=== PATIENT | male | born 1990 | race Caucasian/White ===

== ENCOUNTER → 2019-03-14 | Outpatient (CLI) | payer BC, SELFPAY ==
--- NOTE | 2019-03-14 15:53 | RAD_ITS ---
STUDY: X-RAY CHEST REASON FOR EXAM: Male, 28 years old. Chest pain. TECHNIQUE: Frontal and lateral views of the chest. COMPARISON: None. FINDINGS: The lungs are clear and expanded. There is no demonstrated pleural abnormality. Normal size heart. Normal mediastinum and doc. Normal visualized pulmonary arteries. Normal visualized aortic arch and descending thoracic aorta. Normal visualized thoracic spine. Normal visualized ribs, clavicles, and shoulders. There is no demonstrated abnormality of the visualized soft tissue structures of the upper abdomen. RAD/Chest PA and Lateral IMPRESSION: Normal x-ray examination of the chest. Electronically Signed: Serafin Greenfield MD at 18:58 EDT , Service support ,
[2019-03-14 17:58] LABS: Hematocrit 48.9 % (40-54); Hemoglobin 16.1 g/dL (13.0-16.5); Mean Corp Hgb Conc 32.9 g/dL (32-36); Mean Corpuscular Hgb 29.1 pg (27.0-32.0); Mean Corpuscular Volume 88.4 fL (80-94); Mean Platelet Vol. 9.5 fl (6.2-12.0); Platelet Count 331 K/mm3 (150-450); RBC Distribution Width CV 12.5 % (11.6-14.6); RBC Distribution Width SD 40.9 fl (35.1-43.9); Red Blood Count 5.53 M/mm3 (4.6-6.2); White Blood Count 11.6 K/mm3 (4.4-11.0)
[2019-03-14 18:04] LABS: Anion Gap 9 (5-15); BUN 14 mg/dL (7-18); BUN/Creat Ratio 13.3 RATIO (10-20); Calcium,Total 9.1 mg/dL (8.5-10.1); Chloride 102 mmol/L (98-107); Creatinine, Serum 1.05 mg/dL (0.70-1.30); EST Glomerular Filtration Rate 89 mL/min (>60); Est Glom Filt Rate - Afr Amer 107 mL/min (>60); Glucose 215 mg/dL (74-106); Sodium Level 134 mmol/L (136-145)
[2019-03-14 18:11] LABS: D-Dimer Quantitative (DVT/PE) < 0.27 FEU/ug/m (0.27-0.49)
== END | disposition home or self-care (01) ==
PROVIDERS: Family Provider Family Medicine; PCP Family Medicine; Referring Provider Nurse Practitioner Family; Visit Provider Nurse Practitioner Family
DX: R50.9 Fever, unspecified (principal); M79.603 Pain in arm, unspecified
CPT/HCPCS: 36415; 71046; 80048; 85027; 85379

== ENCOUNTER → 2020-05-22 | Outpatient (CLI) | payer BC, SELFPAY | END | disposition home or self-care (01) | PROVIDERS: PCP Family Medicine; Referring Provider Family Medicine; Visit Provider Family Medicine | DX: Z20.828 Contact with and (suspected) exposure to other viral communicable diseases (principal) | CPT/HCPCS: 87635; U0003 ==

== ENCOUNTER 2020-08-01 16:08 | Inpatient (IN) | payer BC, SELFPAY ==
[2020-08-01 16:11] VITALS: BP 144/78; PULSE 125; RESP 20; TEMP 36.3; O2SAT 97; BMI 40.8
[2020-08-01 17:05] VITALS: BP 139/71; PULSE 111; RESP 27; TEMP 37.1; O2SAT 96
--- NOTE | 2020-08-01 17:14 | CT_ITS ---
STUDY: CT PELVIS WITH CONTRAST REASON FOR EXAM: Male, 29 years old. SCROTAL ABSCESS. Vasectomy 2 weeks ago RADIATION DOSAGE (If Supplied By Facility): CTDIvol = ( 16.94 ) mGy, DLP = ( 1050.32 ) mGycm TECHNIQUE: Transaxial imaging of the pelvis was performed without oral contrast. IV 100mL Isovue-300 was administered intravenously. Individualized dose optimization techniques were used for this CT. COMPARISON: None. FINDINGS: Normal urinary bladder. Normal visualized small intestine. Normal visualized colon. There is no pelvic fluid. There is no pelvic lymphadenopathy or mass lesion. Prominent bilateral nonspecific borderline inguinal lymphadenopathy measuring up to 14 x 18 mm on the right. Normal visualized pelvic arteries. 2.6 x 2.1 cm fluid collection right hemiscrotum. Normal abdominal wall. Normal osseous structures. CT/Pelvis WITH IV Contrast IMPRESSION: Fluid collection right hemiscrotum. Recommend scrotal ultrasound. Prominent inguinal lymphadenopathy. Abscess not excluded. Electronically Signed: Chuck Ozuna MD at 18:49 EST , Service support ,
[2020-08-01] MEDS: Ondansetron 4 MG/2 ML Vial IV (17:21)
[2020-08-01] MEDS: 0.9% Normal Saline 1,000 ML 1000 ML IV (17:21)
[2020-08-01] MEDS: Morphine 4 MG/ML Syringe IV (17:24)
[2020-08-01 17:28] VITALS: PULSE 110; RESP 20; O2SAT 95
[2020-08-01 17:37] LABS: Absolute Lymphocyte Count 1.88 X10^3/uL (0.83-4.51); Absolute Neutrophil Count 13.1 X10^3/uL (2.0-7.7); Basophil# 0.05 X10^3/uL; Basophil% 0.3 % (0-1); Eosinophil# 0.36 X10^3/uL; Eosinophils% 2.2 % (0-5); Hematocrit 42.1 % (40-54); Hemoglobin 14.3 g/dL (13.0-16.5); Lymphocyte # 1.88 X10^3/ul (4.0); Lymphocyte % 11.6 % (19-41); Mean Corpuscular Hgb 28.9 pg (27.0-32.0); Mean Corpuscular Volume 85.1 fL (80-94); Mean Platelet Vol. 8.9 fl (6.2-12.0); Monocyte# 0.73 X10^3/uL; Monocyte% 4.5 % (0-10); NRBC Flagged by Analyzer 0 % (0-5); Neutrophil # 13.06 X10^3/uL (2.7-7.7); Neutrophil % 80.5 % (47-70); Platelet Count 558 K/mm3 (150-450); RBC Distribution Width CV 12.5 % (11.6-14.6); RBC Distribution Width SD 38.4 fl (35.1-43.9); Red Blood Count 4.95 M/mm3 (4.6-6.2); White Blood Count 16.2 K/mm3 (4.4-11.0)
[2020-08-01 17:47] LABS: International Normalized Ratio 1.1; Partial Thromboplast Time 30.8 Seconds (24.1-36.2); Prothrombin Time (Protime)PT. 13.3 SECONDS (11.7-14.9)
[2020-08-01 18:00] VITALS: BP 134/72; PULSE 106; RESP 26; TEMP 36.9; O2SAT 94
[2020-08-01 18:01] LABS: ALB/GLOB Ratio 0.8 RATIO (0.9-2.4); AST(SGOT) 14 U/L (15-37); Alanine Aminotransfer ALT/SGPT 35 U/L (16-61); Albumin, Serum 3.5 g/dL (3.2-5.0); Alkaline Phosphatase 119 U/L (45-117); Anion Gap 8 (5-15); BUN 17 mg/dL (7-18); Calcium,Total 8.7 mg/dL (8.5-10.1); Chloride 108 mmol/L (98-107); Creatinine, Serum 0.85 mg/dL (0.70-1.30); EST Glomerular Filtration Rate 112 mL/min (>60); Est Glom Filt Rate - Afr Amer 135 mL/min (>60); Estimated Creatinine Clearance 131.21 ml/min; Globulin 4.4 g/dL (2.2-4.2); Glucose 194 mg/dL (74-106); Potassium 3.8 mmol/L (3.5-5.1); Protein, Total 7.9 g/dL (6.4-8.2); Sodium Level 141 mmol/L (136-145)
[2020-08-01 18:21] LABS: Lactic Acid 1.4 mmol/L (0.4-1.9)
[2020-08-01] MEDS: Lidocaine 1% /Epi 1:100 (20ml) 20 ML Vial INFILT (18:22)
--- NOTE | 2020-08-01 18:42 | PCM.HP.STD ---
History of Present Illness Date of Admission: 08/01/20 Chief Complaint: Scrotal abscess The patient is a 29 year old male who had a vasectomy about 2 weeks ago last week and some in the office he is sudden onset of swelling on both sides we put him on Cipro he then called me again says is getting worse on the 1 side better on the other worse on his right side C told him to go the emergency room here we got a CAT scan demonstrates a phlegmon and abscess formation on the right side no clear abscess on the left side so at the bedside I numbed to the scrotal skin and incised the abscess and drained pus. I then washed out the scrotal abscess and put Nu Gauze dressing in place. Past Medical History Allergies No Known Allergies Allergy (Verified 08/01/20 16:09) Home Medications: Ambulatory Orders Medication Instructions Recorded Escitalopram Oxalate 20 mg PO DAILY 08/01/20 Glimepiride 1 mg PO DAILY 08/01/20 Metformin HCl 1,000 mg PO BID 08/01/20 Surgical History: no surgical history Smoking Status: Never smoker Review of Systems Constitutional: Denies: Chills, Fever, Weight Change HEENT: Denies: Head Aches, Sinus Congestion, Sinus Drainage Cardiovascular: Denies: Chest Pain, Palpitations Respiratory: Denies: Cough, Shortness of breath at rest, Sputum production Gastrointestinal: Denies: Abdominal Pain, Nausea, Vomiting Genitourinary: Denies: Dysuria Musculoskeletal: Denies: Joint Pain, Joint Tenderness Skin: Denies: Rash, Wounds Neurological: Denies: Numbness, Tingling, Focal weakness Psychiatric: Denies: Anxiety, Depression, Homicidal Ideations, Suicidal Ideations Hematologic/ Lymphatic: Denies: Easy Bruising, Easy Bleeding VTE Information - Inpt Only VTE Present on Admission: No - Physical Exam Vitals/I&O's: Vital Signs Temp Pulse Resp BP Pulse Ox 98.5 F 106 H 26 H 134/72 H 94 08/01/20 18:00 08/01/20 18:00 08/01/20 18:00 08/01/20 18:00 08/01/20 18:00 Oxygen Delivery Method Room Air Weight: 129.1 kg Body Mass Index (BMI) 40.8 General: Alert, Oriented x3, Cooperative HEENT: Atraumatic, PERRLA, EOMI, Normocephalic Neck: Supple, No JVD, Negative Carotid Bruits Lungs: Clear to auscultation, Normal air movement Cardiovascular: Regular rate, No murmurs Abdomen: Bowel Sounds Present, Soft, Non Tender Extremities: No edema, Capillary Refill Less than 3 Seconds Skin: No rashes, No breakdown Musculoskeletal: No Tenderness to Palpation of Joints or Extremities Neurological: Cranial nerves II-XII grossly intact Psych/Mental Status: Normal Affect, Appropriate Comment: Right side scrotum was very firm and indurated incision and drainage of pus Laboratory Results 08/01/20 17:20: WBC 16.2 H, RBC 4.95, Hgb 14.3, Hct 42.1, MCV 85.1, MCH 28.9, MCHC 34.0, RDW Std Deviation 38.4, RDW Coeff of Marley 12.5, Plt Count 558 H, MPV 8.9, Immature Gran % (Auto) 0.900, Neut % (Auto) 80.5 H, Lymph % (Auto) 11.6 L, [place] % (Auto) 4.5, Eos % (Auto) 2.2, Baso % (Auto) 0.3, Absolute Neuts (auto) 13.1 H, Absolute Lymphs (auto) 1.88, Nucleated RBC % 0 08/01/20 17:20: PT 13.3, INR 1.1, APTT 30.8 08/01/20 17:20: Sodium 141, Potassium 3.8, Chloride 108 H, Carbon Dioxide 25.0, Anion Gap 8, BUN 17, Creatinine 0.85, Estim Creat Clear Calc 131.21, Est GFR (MDRD) Af Amer 135, Est GFR (MDRD) Non-Af 112, BUN/Creatinine Ratio 20.0, Glucose 194 H, Calcium 8.7, Total Bilirubin 0.30, AST 14 L, ALT 35, Alkaline Phosphatase 119 H, Total Protein 7.9, Albumin 3.5, Globulin 4.4 H, Albumin/Globulin Ratio 0.8 L 08/01/20 17:20: Lactic Acid 1.4 Current Medications Vancomycin HCl 2,000 mg/ (Sodium Chloride) 540 mls @ 250 mls/hr IV X1 ONE Stop: 08/01/20 19:39 Assessment/Plan We will admit the patient for IV antibiotics status post incision and drainage of pus and abscess in the right side of the scrotum.
[2020-08-01] MEDS: HYDROmorphone 1 MG/ML Syringe IV (18:50)
[2020-08-01 18:56] VITALS: BP 148/79; PULSE 103; RESP 13; TEMP 36.9; O2SAT 96
--- NOTE | 2020-08-01 19:00 | ED.RN ---
ASSISTED DR. ARAMBULA WITH I & D OF RT TESTICULAR ABSCESS.. COPIOUS AMOUNTS OF BLOOD AND PUS DRAINED FROM ABSCESS.PT TOLERATED WELL. ABSCESS PACKED WITH 1/[address] ARAMBULA. PT TOLERATED WELL. PT CLEANED UP. MULTIPLE LAYERS OF 4 X 4 PLACED AND MESH UNDERWARE PLACED
--- NOTE | 2020-08-01 19:02 | ED.VISSUMM ---
- ER Visit Summary Date of Service: 08/01/20 Chief Complaint: Vasectomy infected History of Present Illness: The patient is a 29 M who was formerly a patient Dr. Pratik Calix. He reports that 2 weeks ago he had a vasectomy by Dr. Pro may. He saw him 6 days ago and was placed on Cipro. Saw him 4 days ago and was placed on Keflex. He reports the left side is much improved. However, the right side is unchanged. He complains of a sharp pain is 7-10 with movement 2 out of 10 at rest. He denies any constitutional symptoms. No fever, nausea, or vomiting. Physical Examination: Vitals: Stable. Afebrile. General: Well-nourished and well-developed. Head: Normocephalic atraumatic. Neck: Supple, no lymphadenopathy. No JVD. Nontender. Cardiovascular: Tachycardic regular rhythm. No murmurs. Respiratory: No respiratory distress. Clear to auscultation bilaterally. Abdominal: Soft, nontender, nondistended, normal bowel sounds. No guarding, rebound, or peritoneal signs. : His scrotum is red and swollen. The right is much more swollen than the left. The right side is also indurated. It is very tender to palpation. I do not appreciate any crepitus. Back: Nontender. Extremities: Nontender, no edema. Skin: Normal color, no rash. Neurologic: Alert and oriented ?3. Cranial nerves II through XII are intact. Normal strength and sensation. Psych: Normal affect. Test Results: CBC shows a white count of 16.2 with 558 platelets, 81 segmented neutrophils, 12 lymphocytes. Lactic acid is 1.4. Chem-7 shows a chloride of 108, glucose 194. LFTs show a alk phos of 119 and AST 14. Coags are normal. Clinical Impression(s) from Imaging Studies Pelvis CT 08/01/20 17:14 IMPRESSION: Fluid collection right hemiscrotum. Recommend scrotal ultrasound. Prominent inguinal lymphadenopathy. Abscess not excluded. Electronically Signed: Chuck Ozuna MD at 18:49 EST , Service support , Emergency Department Course and Treatment: Was given Zosyn and vancomycin IV. He was given morphine and Zofran for his pain. He was seen by Dr. Pro may in the emergency department and had a bedside I&D. Treatment Plan: Patient be admitted to the hospital for IV antibiotics. Disposition: Admitted in improved condition. Impression: 1. Right scrotal abscess. 2. Vasectomy approximately 2 weeks ago. 3. Type 2 diabetes mellitus. This note was generated with [employer] dictation software. It may contain incorrect words, spelling, and punctuation that were not noted in review of the chart prior to signing ED Disposition - Plan for ED Patient: Referrals: Pratik Calix MD [Primary Care Provider] -
[2020-08-01 20:24] VITALS: BMI 40.0
[2020-08-01 20:34] VITALS: BMI 40.0
[2020-08-01 20:46] VITALS: BP 126/66; PULSE 92; RESP 18; TEMP 37.3; O2SAT 94
[2020-08-01] MEDS: oxyCODONE 5 MG Tablet 10 MG PO (22:21)
[2020-08-01] MEDS: 0.9% Normal Saline 1,000 ML 75 ML IV (22:22)
[2020-08-01 22:31] LABS: Bedside Glucose 96 mg/dL (70-110)
[2020-08-02] MEDS: oxyCODONE 5 MG Tablet 10 MG PO ×4 (02:45→22:23)
[2020-08-02 02:48] VITALS: BP 115/62; PULSE 70; RESP 16; TEMP 37; O2SAT 94
[2020-08-02 07:06] LABS: Bedside Glucose 105 mg/dL (70-110)
[2020-08-02] MEDS: Morphine 2 MG/ML Syringe IV (08:04)
[2020-08-02 08:15] VITALS: BP 109/61; PULSE 69; RESP 16; TEMP 36.8; O2SAT 98
[2020-08-02] MEDS: Glimepiride 1 MG Tablet PO (08:19)
[2020-08-02] MEDS: Escitalopram Oxalate 20 MG Tablet PO (08:19)
[2020-08-02] MEDS: metFORMIN HCl 1,000 MG Tablet 1000 MG PO ×2 (08:19→17:14)
--- NOTE | 2020-08-02 08:53 | PCM.PROGNOTE ---
Subjective: Patient admitted for abscess on the right side of the scrotum after vasectomy. Abscess was drained in the emergency room today we change the dressing at the bedside after the bit of morphine he tolerated okay. - Physical Exam Vitals/I&O's: Vital Signs Temp Pulse Resp BP Pulse Ox 98.3 F 69 16 109/61 98 08/02/20 08:15 08/02/20 08:15 08/02/20 08:15 08/02/20 08:15 08/02/20 08:15 Oxygen Delivery Method Room Air Weight: 126.6 kg Body Mass Index (BMI) 40.0 Intake and Output for Last 24 Hours 07/31/20 08/01/20 08/02/20 23:59 23:59 23:59 Intake Total 1641.25 / 1641.25 76 / 76 Output Total 725 / 725 300 / 300 Balance 916.25 / 916.25 -224 / -224 General: Alert, Oriented x3, Cooperative HEENT: Atraumatic, PERRLA, EOMI, Normocephalic Neck: Supple, No JVD, Negative Carotid Bruits Lungs: Clear to auscultation, Normal air movement Cardiovascular: Regular rate, No murmurs Abdomen: Bowel Sounds Present, Soft, Non Tender Extremities: No edema, Capillary Refill Less than 3 Seconds Skin: No rashes, No breakdown Musculoskeletal: No Tenderness to Palpation of Joints or Extremities Neurological: Cranial nerves II-XII grossly intact Psych/Mental Status: Normal Affect, Appropriate Laboratory Results 08/01/20 17:20: WBC 16.2 H, RBC 4.95, Hgb 14.3, Hct 42.1, MCV 85.1, MCH 28.9, MCHC 34.0, RDW Std Deviation 38.4, RDW Coeff of Marley 12.5, Plt Count 558 H, MPV 8.9, Immature Gran % (Auto) 0.900, Neut % (Auto) 80.5 H, Lymph % (Auto) 11.6 L, [place] % (Auto) 4.5, Eos % (Auto) 2.2, Baso % (Auto) 0.3, Absolute Neuts (auto) 13.1 H, Absolute Lymphs (auto) 1.88, Nucleated RBC % 0 08/01/20 17:20: PT 13.3, INR 1.1, APTT 30.8 08/01/20 17:20: Sodium 141, Potassium 3.8, Chloride 108 H, Carbon Dioxide 25.0, Anion Gap 8, BUN 17, Creatinine 0.85, Estim Creat Clear Calc 131.21, Est GFR (MDRD) Af Amer 135, Est GFR (MDRD) Non-Af 112, BUN/Creatinine Ratio 20.0, Glucose 194 H, Calcium 8.7, Total Bilirubin 0.30, AST 14 L, ALT 35, Alkaline Phosphatase 119 H, Total Protein 7.9, Albumin 3.5, Globulin 4.4 H, Albumin/Globulin Ratio 0.8 L 08/01/20 17:20: Lactic Acid 1.4 08/01/20 22:26: POC Glucose 96 08/02/20 06:46: POC Glucose 105 Current Medications Escitalopram Oxalate (Escitalopram Oxalate 20 Mg Tablet) 20 mg PO DAILY [facility] Last Admin: 08/02/20 08:19 Dose: 20 mg Documented by: [facility]pir[facility] ([facility] Last Admin: 08/02/20 08:19 Dose: 1 mg Documented by: Sodium Chloride () 1,000 mls @ 75 mls/hr IV .[id number] [facility] Last Infusion: 08/02/20 02:22 Dose: 75 mls/hr Documented by: Piperacillin Sod/Tazobactam (Sod 3.375 gm/ Sodium Chloride) 50 mls @ 12.5 mls/hr IV Q8 [facility] Last Admin: 08/02/20 06:43 Dose: 12.5 mls/hr Documented by: Sodium Chloride () 250 mls @ 15 mls/hr IV .[id number] PRN PRN Reason: Saline Flush Last Infusion: 08/02/20 08:27 Dose: 0 mls/hr Documented by: Sodium Chloride () 250 mls @ 15 mls/hr IV .[id number] PRN PRN Reason: Additional IVPB Infusion Metformin HCl (Metformin Hcl 1,000 Mg Tablet) [facility] Last Admin: 08/02/20 08:19 Dose: 1,000 mg Documented by: Oxycodone HCl (Oxycodone 5 Mg Tablet) 10 mg PO Q4H PRN PRN PRN Reason: Pain Score 4-10 Last Admin: 08/02/20 06:47 Dose: 10 mg Documented by: Prochlorperazine Edisylate (Prochlorperazine 10 Mg/2 Ml Vial) 5 mg IV Q4H PRN PRN PRN Reason: Breakthrough nausea/vomiting Sodium Chloride (0.9% Saline Lock 10 Ml Syringe) 10 - 40 ml IV UD PRN PRN Reason: SALINE FLUSH Zolpidem Tartrate (Zolpidem Tartrate 5 Mg Tablet) 5 mg PO QHS PRN PRN PRN Reason: INSOMNIA Medical Necessity - Tobacco Use Smoking Status: Never smoker Assessment/Plan Continue with broad-spectrum antibiotics continue with dressing changes at bedside nurses will teach how to do dressing changes hopefully can go home the next day or 2 with dressing changes.
[2020-08-02 12:05] LABS: Bedside Glucose 156 mg/dL (70-110)
[2020-08-02] MEDS: 0.9% Normal Saline 1,000 ML 75 ML IV (13:49)
[2020-08-02 13:51] VITALS: BP 110/60; PULSE 70; RESP 16; TEMP 36.9; O2SAT 98
[2020-08-02 17:15] LABS: Bedside Glucose 94 mg/dL (70-110)
[2020-08-02 20:32] VITALS: BP 117/76; PULSE 69; RESP 18; TEMP 37; O2SAT 97
[2020-08-02] MEDS: 0.9% Saline Lock 10 ML Syringe IV (22:39)
[2020-08-02 22:46] LABS: Bedside Glucose 129 mg/dL (70-110)
[2020-08-03 02:41] VITALS: BP 124/77; PULSE 60; RESP 18; TEMP 36.5; O2SAT 98
[2020-08-03] MEDS: oxyCODONE 5 MG Tablet 10 MG PO ×3 (02:44→20:33)
[2020-08-03] MEDS: 0.9% Normal Saline 1,000 ML 75 ML IV ×2 (02:45→16:02)
[2020-08-03 06:45] LABS: Bedside Glucose 81 mg/dL (70-110)
--- NOTE | 2020-08-03 08:18 | PN_ITS ---
Subjective: Admitted for scrotal abscess today change the wound less purulent drainage and also less painful for him to get changed. His is going to learn how to do dressing changes. Anticipate probably home tomorrow with antibiotics. - Physical Exam Vitals/I&O's: Vital Signs Temp Pulse Resp BP Pulse Ox 97.7 F L 60 18 124/77 H 98 08/03/20 02:41 08/03/20 02:41 08/03/20 02:41 08/03/20 02:41 08/03/20 02:41 Oxygen Delivery Method Room Air Weight: 126.6 kg Body Mass Index (BMI) 40.0 Intake and Output for Last 24 Hours 08/01/20 08/02/20 08/03/20 23:59 23:59 23:59 Intake Total 1641.25 / 1641.25 2434.75 / 2434.75 1620 / 1620 Output Total 725 / 725 1600 / 1600 Balance 916.25 / 916.25 834.75 / 834.75 1620 / 1620 General: Alert, Oriented x3, Cooperative HEENT: Atraumatic, PERRLA, EOMI, Normocephalic Neck: Supple, No JVD, Negative Carotid Bruits Lungs: Clear to auscultation, Normal air movement Cardiovascular: Regular rate, No murmurs Abdomen: Bowel Sounds Present, Soft, Non Tender Extremities: No edema, Capillary Refill Less than 3 Seconds Skin: No rashes, No breakdown Musculoskeletal: No Tenderness to Palpation of Joints or Extremities Neurological: Cranial nerves II-XII grossly intact Psych/Mental Status: Normal Affect, Appropriate Laboratory Results 08/02/20 11:57: POC Glucose 156 H 08/02/20 17:07: POC Glucose 94 08/02/20 22:28: POC Glucose 129 H 08/03/20 06:43: POC Glucose 81 Current Medications Escitalopram Oxalate (Escitalopram Oxalate 20 Mg Tablet) 20 mg PO DAILY [facility] Last Admin: 08/02/20 08:19 Dose: 20 mg Documented by: [facility]imepir[facility] ([facility] 1 Mg [facility]) [facility] Last Admin: 08/02/20 08:19 Dose: 1 mg Documented by: Sodium Chloride () 1,000 mls @ 75 mls/hr IV .[id number] [facility] Last Admin: 08/03/20 02:45 Dose: 75 mls/hr Documented by: Piperacillin Sod/Tazobactam (Sod 3.375 gm/ Sodium Chloride) 50 mls @ 12.5 mls/hr IV Q8 [facility] Last Admin: 08/03/20 06:48 Dose: 12.5 mls/hr Documented by: Sodium Chloride () 250 mls @ 15 mls/hr IV .[id number] PRN PRN Reason: Saline Flush Last Infusion: 08/02/20 08:27 Dose: 0 mls/hr Documented by: Sodium Chloride () 250 mls @ 15 mls/hr IV .[id number] PRN PRN Reason: Additional IVPB Infusion Metformin HCl (Metformin Hcl 1,000 Mg Tablet) 1,000 mg PO BIDCM [facility] Last Admin: 08/02/20 17:14 Dose: 1,000 mg Documented by: Oxycodone HCl (Oxycodone 5 Mg Tablet) 10 mg PO Q4H PRN PRN PRN Reason: Pain Score 4-10 Last Admin: 08/03/20 02:44 Dose: 10 mg Documented by: Prochlorperazine Edisylate (Prochlorperazine 10 Mg/2 Ml Vial) 5 mg IV Q4H PRN PRN PRN Reason: Breakthrough nausea/vomiting Sodium Chloride (0.9% Saline Lock 10 Ml Syringe) 10 - 40 ml IV UD PRN PRN Reason: SALINE FLUSH Last Admin: 08/02/20 22:39 Dose: 10 ml Documented by: Zolpidem Tartrate (Zolpidem Tartrate 5 Mg Tablet) 5 mg PO QHS PRN PRN PRN Reason: INSOMNIA Medical Necessity - Tobacco Use Smoking Status: Never smoker Assessment/Plan Plan for discharge tomorrow with antibiotics and dressing changes at home.
--- NOTE | 2020-08-03 08:26 | DCINST_ITS ---
Discharge Diet: No Restrictions Discharge Activity: May not drive while taking narcotic pain medications. Return to work on:: 08/11/20 - 1 week off work or light duty Additional Activity Instructions:: Please be aware that pain medications may cause nausea. You should typically eat light foods as you take your pain medication. Pain medication may cause constipation, if this is a problem for you, please discuss with your doctor. Call your doctor if your incision/area has: Sudden Increased Bleeding, Increased Pain/ Swelling, Foul Smelling Discharge Call your doctor if you observe: Fever of 101 or Higher Suture Line Care: Avoid Pulling/Pushing, Avoid Pinching/Bending Allergies/Adverse Reactions: Allergies No Known Allergies Allergy (Verified 08/01/20 16:09) Medications to take at Discharge Escitalopram Oxalate 20 mg PO DAILY 08/01/20 Glimepiride 1 mg PO DAILY 08/01/20 Metformin HCl 1,000 mg PO BID 08/01/20 Hydrocodone/Acetaminophen [[employer] 5-325 Tablet] 1 each PO Q4H PRN PRN 7 Days #14 tablet 08/03/20 Smz/Tmp Ds [Bactrim Ds] 1 tab PO BID #14 tab 08/03/20 The following prescriptions were given: Smz/Tmp Ds [Bactrim Ds] 1 tab PO BID #14 tab Transmission Status: Pending to [facility] Hydrocodone/Acetaminophen [[employer] 5-325 Tablet] 1 each PO Q4H PRN PRN 7 Days #14 tablet PRN Reason: Pain 1-10 Or Fever Transmission Status: Sent to [facility] Primary Care Physician: Pratik Calix MD [Primary Care Provider] - Test Results: Test results from this visit will be discussed in further detail at your follow- up appointment, if applicable. Please Follow Up With: Thong Lane MD When: in 2 weeks, please call to make an appointment. Proposed Discharge Date: 08/04/20
[2020-08-03 09:12] VITALS: BP 130/81; PULSE 69; RESP 18; TEMP 36.4; O2SAT 98
[2020-08-03] MEDS: Glimepiride 1 MG Tablet PO (09:14)
[2020-08-03] MEDS: Escitalopram Oxalate 20 MG Tablet PO (09:14)
[2020-08-03] MEDS: metFORMIN HCl 1,000 MG Tablet 1000 MG PO ×2 (09:14→17:41)
[2020-08-03 11:41] LABS: Bedside Glucose 142 mg/dL (70-110)
[2020-08-03 14:22] VITALS: BP 125/68; PULSE 78; RESP 16; TEMP 36.7; O2SAT 98
[2020-08-03 17:15] LABS: Bedside Glucose 72 mg/dL (70-110)
[2020-08-03 20:43] VITALS: BP 134/73; PULSE 68; RESP 18; TEMP 36.5; O2SAT 98
[2020-08-03 23:36] LABS: Bedside Glucose 90 mg/dL (70-110)
[2020-08-04 03:05] VITALS: BP 137/72; PULSE 71; RESP 16; TEMP 36.5; O2SAT 98
[2020-08-04] MEDS: 0.9% Normal Saline 1,000 ML 75 ML IV (05:23)
[2020-08-04 06:36] LABS: Bedside Glucose 96 mg/dL (70-110)
--- NOTE | 2020-08-04 07:33 | DS.PCM_ITS ---
Discharge Date and Diagnosis Date of Admission: 08/02/20 Date of Discharge: 08/04/20 Hospital Course and Treatment Operations: - - Incision and drainage of scrotal abscess Procedures: None Summary of Care Provided: The patient is a 29 year old male admitted with a scrotal abscess when I&D in the ER was put on broad-spectrum antibiotics and is going home today with dressing changes by the family and follow-up in a week with me. - Physical Exam Vitals/I&O's: Vital Signs Temp Pulse Resp BP Pulse Ox 97.7 F L 71 16 137/72 H 98 08/04/20 03:05 08/04/20 03:05 08/04/20 03:05 08/04/20 03:05 08/04/20 03:05 Oxygen Delivery Method Room Air Weight: 126.6 kg Body Mass Index (BMI) 40.0 Intake and Output for Last 24 Hours 08/02/20 08/03/20 08/04/20 23:59 23:59 23:59 Intake Total 2434.75 / 2434.75 3796.25 / 4396.25 1650 / 1650 Output Total 1600 / 1600 Balance 834.75 / 834.75 3796.25 / 4396.25 1650 / 1650 General: Alert, Oriented x3, Cooperative HEENT: Atraumatic, PERRLA, EOMI, Normocephalic Neck: Supple, No JVD, Negative Carotid Bruits Lungs: Clear to auscultation, Normal air movement Cardiovascular: Regular rate, No murmurs Abdomen: Bowel Sounds Present, Soft, Non Tender Extremities: No edema, Capillary Refill Less than 3 Seconds Skin: No rashes, No breakdown Musculoskeletal: No Tenderness to Palpation of Joints or Extremities Neurological: Cranial nerves II-XII grossly intact Psych/Mental Status: Normal Affect, Appropriate Laboratory Results 08/03/20 11:29: POC Glucose 142 H 08/03/20 17:10: POC Glucose 72 08/03/20 23:30: POC Glucose 90 08/04/20 06:32: POC Glucose 96 Current Medications Escitalopram Oxalate (Escitalopram Oxalate 20 Mg Tablet) 20 mg PO DAILY [facility] Last Admin: 08/03/20 09:14 Dose: 20 mg Documented by: Glimepiride ([facility] 1 Mg [facility]) [facility] Last Admin: 08/03/20 09:14 Dose: 1 mg Documented by: Sodium Chloride () 1,000 mls @ 75 mls/hr IV .[id number] [facility] Last Admin: 08/04/20 05:23 Dose: 75 mls/hr Documented by: Piperacillin Sod/Tazobactam (Sod 3.375 gm/ Sodium Chloride) 50 mls @ 12.5 mls/hr IV Q8 [facility] Last Admin: 08/04/20 05:23 Dose: 12.5 mls/hr Documented by: Sodium Chloride () 250 mls @ 15 mls/hr IV .[id number] PRN PRN Reason: Saline Flush Last Infusion: 08/02/20 08:27 Dose: 0 mls/hr Documented by: Sodium Chloride () 250 mls @ 15 mls/hr IV .[id number] PRN PRN Reason: Additional IVPB Infusion Metformin HCl (Metformin Hcl 1,000 Mg Tablet) [facility] Last Admin: 08/03/20 17:41 Dose: 1,000 mg Documented by: Oxycodone HCl (Oxycodone 5 Mg Tablet) 10 mg PO Q4H PRN PRN PRN Reason: Pain Score 4-10 Last Admin: 08/03/20 20:33 Dose: 10 mg Documented by: Prochlorperazine Edisylate (Prochlorperazine 10 Mg/2 Ml Vial) 5 mg IV Q4H PRN PRN PRN Reason: Breakthrough nausea/vomiting Sodium Chloride (0.9% Saline Lock 10 Ml Syringe) 10 - 40 ml IV UD PRN PRN Reason: SALINE FLUSH Last Admin: 08/02/20 22:39 Dose: 10 ml Documented by: Zolpidem Tartrate (Zolpidem Tartrate 5 Mg Tablet) 5 mg PO QHS PRN PRN PRN Reason: INSOMNIA Discharge Diet: No Restrictions Discharge Activity: May not drive while taking narcotic pain medications. Return to work on:: 08/11/20 - 1 week off work or light duty Additional Activity Instructions:: Please be aware that pain medications may cause nausea. You should typically eat light foods as you take your pain medication. Pain medication may cause constipation, if this is a problem for you, please discuss with your doctor. Call your doctor if your incision/area has: Sudden Increased Bleeding, Increased Pain/ Swelling, Foul Smelling Discharge Call your doctor if you observe: Fever of 101 or Higher Suture Line Care: Avoid Pulling/Pushing, Avoid Pinching/Bending Home Medications: Medications to take at Discharge Escitalopram Oxalate 20 mg PO DAILY 08/01/20 Glimepiride 1 mg PO DAILY 08/01/20 Metformin HCl 1,000 mg PO BID 08/01/20 Hydrocodone/Acetaminophen [[place] 5-325 Tablet] 1 ea PO Q4H PRN PRN 7 Days #14 tab 08/03/20 Smz/Tmp Ds [Bactrim Ds] 1 tab PO BID #14 tab 08/03/20 Following Prescriptions Were Given to Patient: Smz/Tmp Ds [Bactrim Ds] 1 tab PO BID #14 tab Transmission Status: Received by [facility] Hydrocodone/Acetaminophen [[place] 5-325 Tablet] 1 ea PO Q4H PRN PRN 7 Days #14 tab PRN Reason: Pain 1-10 Or Fever Transmission Status: Received by [facility] Primary Care Physician: Pratik Calix MD [Primary Care Provider] - Please Follow Up With: Thong Lane MD When: in 2 weeks, please call to make an appointment. Medical Necessity - Tobacco Use Smoking Status: Never smoker Meaningful Use Info Meaningful Use Diagnoses (Choose all that apply): None applicable
[2020-08-04 08:15] VITALS: BP 111/56; PULSE 64; RESP 18; TEMP 36.7; O2SAT 96
--- NOTE | 2020-08-04 10:00 | CASEMGMT ---
RN JOSE Face to Face with patient for initial transition planning/care coordination assessment. RN CM introduced self and role at [facility]. Patient lying in bed, alert and oriented. Patient willing to participate in assessment and is able to answer all questions appropriately. Care providers, pharmacy, and demographics verified. Patient wishes to discharge home, denies need for home health at this time. Patient states he has no further needs or concerns at this time. CM to follow for discharge planning needs that may arise. PCP: Yogi Specialists: [facility] Pharmacy: [facility] Insurance: [employer] Prescription Benefit: yes Living Will/HPOA: none LNOK: Living Arrangements: Patient live with in bi-level home. Patient states he is independent and able to ambulate stairs. Transportation: self, DME/HHC: Patient denies need for DME or HHC. was taught wound care for at home. Disposition Plan: Patient to discharge home with family support and follow-up plans in place. Norma KIRK, RN, CM
[2020-08-04] MEDS: metFORMIN HCl 1,000 MG Tablet 1000 MG PO (10:34)
[2020-08-04] MEDS: Glimepiride 1 MG Tablet PO (10:34)
[2020-08-04] MEDS: Escitalopram Oxalate 20 MG Tablet PO (10:35)
[2020-08-04] MEDS: oxyCODONE 5 MG Tablet 10 MG PO (10:36)
[2020-08-04 11:30] VITALS: BP 134/71; PULSE 69; RESP 16; TEMP 36.7; O2SAT 96
--- NOTE | 2020-08-04 11:33 | PHA.DC.MC ---
Pharmacy Service has performed discharge medication reconciliation and counseling for this patient. 1. SULFAMETHOXAZOLE/TRIMETHOPRIM DS 1T PO BID X 7 DAYS 2. HYDROCODONE/ACETAMINOPHEN 5/325MG PO Q4H PRN PAIN OR FEVER The patient's discharge medication list was reviewed for discrepancies and discrepancies were resolved. Home Medications Escitalopram Oxalate 20 mg PO DAILY 08/01/20 Glimepiride 1 mg PO DAILY 08/01/20 Metformin HCl 1,000 mg PO BID 08/01/20 Hydrocodone/Acetaminophen [[place] 5-325 Tablet] 1 ea PO Q4H PRN PRN 7 Days #14 tab 08/03/20 Smz/Tmp Ds [Bactrim Ds] 1 tab PO BID #14 tab 08/03/20 The patient was counseled on the following discharge medications and changes in medications for homegoing were reviewed. The Reason for Use, instructions for use, and potential side effects were reviewed for all new medications. The patient's questions regarding all of their medications were answered. The patient was able to verbally demonstrate an understanding of their discharge medications.
== END 2020-08-04 12:11 | disposition home or self-care (01) | DRG 863 ==
LOC: ED 17:40 → MS3 18:53
PROVIDERS: Admitting Provider Urology; Emergency Provider Emergency Medicine; PCP Family Medicine; Visit Provider Urology
DX: T81.41XA Infection following a procedure, superficial incisional surgical site, initial encounter (principal); N49.2 Inflammatory disorders of scrotum; Z98.52 Vasectomy status; E11.9 Type 2 diabetes mellitus without complications; F41.9 Anxiety disorder, unspecified; Z79.84 Long term (current) use of oral hypoglycemic drugs; Z79.899 Other long term (current) drug therapy
CPT/HCPCS: 72193; 80053; 82962; 83605; 85025; 85610; 85730; 87040; 99285; J7030; J7040; J7050; Q9967; A4216; J2405

== ENCOUNTER → 2022-09-06 | Outpatient (CLI) | payer BC, SELFPAY ==
--- NOTE | 2022-09-06 10:58 | RAD_ITS ---
STUDY: X-RAY - RIGHT FOOT CLINICAL: Male, 31 years old. R foot pain following injury. TECHNIQUE: 3 view(s) of the foot. COMPARISON: None. FINDINGS: There is an enthesophyte involving the posterior superior calcaneus at the site of insertion of the Achilles tendon. Plantar spur. Normal visualized subtalar, talonavicular, calcaneocuboid, tarsal and tarsometatarsal articulations. Normal metatarsi. Normal metatarsophalangeal joint of the great toe. Normal tibial and fibular sesamoid bones. Normal interphalangeal joint of the great toe. Normal phalanges of the great toe. Normal second through fifth metatarsophalangeal joints. Normal interphalangeal joints and phalanges of the lesser toes. The soft tissue structures are unremarkable. RAD/Foot min 3 Views IMPRESSION: Calcaneal spurs. Electronically Signed: Jorge Cleaning MD at 11:50 EST ,
== END | disposition home or self-care (01) ==
PROVIDERS: PCP Family Medicine; Referring Provider Family Medicine; Visit Provider Family Medicine
DX: M77.31 Calcaneal spur, right foot (principal)
CPT/HCPCS: 73630

== ENCOUNTER → 2024-07-13 | Outpatient (CLI) | payer BC, SELFPAY ==
--- NOTE | 2024-07-13 14:09 | US_ITS ---
HISTORY: RT SCROTAL LUMP, ? EPIDIDYMAL CYST TECHNIQUE: Realtime ultrasound of the testicles was performed with grayscale, Color Doppler and spectral Doppler analysis. 56 images. COMPARISON: CT 08/01/2020. FINDINGS: Right- TESTIS: 1.5 x 2.5 x 3.3 cm. Homogeneous echotexture without focal lesion. COLOR DOPPLER: Normal arterial flow present in the testicle with monophasic waveforms. EPIDIDYMIS: 8 x 11 x 11 mm with mild heterogeneity. No focal hyperemia. EXTRATESTICULAR CONTENTS: No significant hydrocele. Left- TESTIS: 2.5 x 3 x 4.2 cm. Homogeneous echotexture without focal lesion. COLOR DOPPLER: Normal arterial flow present in the testicle with monophasic waveforms. EPIDIDYMIS: 7 x 9 x 11 mm. [No focal hyperemia. EXTRATESTICULAR CONTENTS: No significant hydrocele US/Testicular with Arterial Flow IMPRESSION: Vascular flow demonstrated to both testicles without focal intratesticular mass. Mild heterogeneity of the right epididymis, possible sequela of epididymitis. Electronically Signed: Bita Beltre MD at 8:17 EST ,
== END | disposition home or self-care (01) ==
PROVIDERS: PCP Family Medicine; Referring Provider Family Medicine; Visit Provider Family Medicine
DX: N50.89 Other specified disorders of the male genital organs (principal)
CPT/HCPCS: 76870; 93976

== ENCOUNTER 2025-02-20 17:28 | Outpatient (CLI) | payer BC, SELFPAY | END 2025-02-20 23:59 | disposition home or self-care (01) | LOC: LABSPEC 17:28 | PROVIDERS: PCP Family Medicine; Visit Provider Nurse Practitioner Family | DX: N50.89 Other specified disorders of the male genital organs (principal) | CPT/HCPCS: 87086; 87661 ==